=== PATIENT | female | born 2005 | race Caucasian/White ===

== ENCOUNTER 2024-02-10 08:23 | Outpatient (AMB) | payer BC, SELFPAY ==
[2024-02-10 08:44] VITALS: BP 118/78; PULSE 104; TEMP 37; O2SAT 98; BMI 57.9
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
== END 2024-02-10 09:07 | disposition home or self-care (01) ==
PROVIDERS: PCP Pediatrics; Visit Provider Physician Assistant
DX: Z13.9 Encounter for screening, unspecified (principal); H66.002 Acute suppurative otitis media without spontaneous rupture of ear drum, left ear

== ENCOUNTER → 2024-02-10 08:23 | Outpatient (BNVA) | payer BC, SELFPAY | PROVIDERS: PCP Pediatrics; Visit Provider Registered Nurse | DX: H66.002 Acute suppurative otitis media without spontaneous rupture of ear drum, left ear (principal); J02.9 Acute pharyngitis, unspecified | CPT/HCPCS: 87880 ==

== ENCOUNTER 2024-03-30 10:10 | Outpatient (REF) | payer BC, SELFPAY ==
--- OUTSIDE RECORDS SUMMARY | 2024-03-30 15:40 | XMS_ITS | Encounter Summary ---
Author Organization [facility] Address [address] [place] [id number] Phone Care Team Providers Care Malted Milk Supervisor Name Role Phone Modesta Nielsen DO Primary Care Provider [phone] Encounter Details Date Type Department Care Team (Late st Contact Info) Description 10/21/2016 Conversion Encounter [facility] [address] [place] [address] Social History Tobacco Use Types Packs/Day Years Used Date Smoking Tobacco: Never Assessed Comments Unknown Sex and Gender Information Value Date Recorded Sex Assigned at Not on file Legal Sex Female 5:23 PM EDT Gender Identity Transgender Male 10/12/2018 10:2 2 AM EDT Sexual Orientation Not on file documented as of this encounter Plan of Treatment Not on file documented as of this encounter Visit Diagnoses Not on filedocumented in this encounter Care Teams Malted Milk Supervisor Relationship Specialty Start Date End Date Modesta Nielsen DO [address] [place] [address] PCP - General 10/15/16 02/21/24 documented as of this encounter
--- OUTSIDE RECORDS SUMMARY | 2024-03-30 15:40 | XMS_ITS | Clinical Summary ---
Author Organization [facility] Address [address] [place] [id number] Phone Care Team Providers Care Cross Cut Sawyer Name Role Phone Unavailable Primary Care Provider Unavailabl e Allergies No known active allergies Medications testosterone cypionate 200 MG/ML injection INJECT 0.3 ML INTO THE MUSCLE Q 14 DAYS 5 9 Active B-D BLUNT FILL NEEDLE 18G X 1-1/2 misc USE TO DRAW UP MEDICATION ONCE Q 14 DAYS 11 9 Active BD DISP NEEDLE 23G X 1 misc USE TO ADMINISTER MEDICATION ONCE Q 2 WEEKS 11 9 Active B-D SYRINGE LUER-JACOB 1CC 1 ML misc USE TO DRAW UP AND ADMINISTER MEDICATION D FOR 14 DAYS 10 9 Active Active Problems Problem Noted Date Diagnosed Date Elevated blood pressure reading 06/25/2021 Overview (06/25/2021): Pt with acute pain today, but recent BP's all markedly elevated with elevated BMI and mood disorder co-morbidity. Overdue for [facility], will book Social problem 09/27/2019 Overview (07/28/2020): [facility]- D/w teen and dad that this is an unusual age to be making diagnoses of ADD and/or ASD There are other conditions that can be quite similar to the above He has worked with the same therapist for two years now and has talked to therapist about these concerns after he did online research on ADD and ASD I will refer him for psychol eval inc testing for ASD but also need input from therapist for referral Teen will need to d/w therapist signing a release so therapist can either write to me or call me Assessment & Plan (12/19/2019 10:56 AM EDT): On waitlist @ [facility] for ASD eval- knows the wait is long- 8 months Assessment & Plan (09/27/2019 9:43 AM EDT): D/w teen and dad that this is an unusual age to be making diagnoses of ADD and/or ASD There are other conditions that can be quite similar to the above He has worked with the same therapist for two years now and has talked to therapist about these concerns after he did online research on ADD and ASD I will refer him for psychol eval inc testing for ASD but also need input from therapist for referral Teen will need to d/w therapist signing a release so therapist can either write to me or call me [id number] transgender person 03/13/2018 Overview (10/12/2018): [facility]; started TEST shots [facility] therapist- Elysia Saw [facility] therapist Silvino Santizo in spring 2018- ?F/U Assessment & Plan (12/20/2019 9:23 AM EDT): Screen lipids and f glu TEST inj going well Family supportive Assessment & Plan (09/27/2019 9:37 AM EDT): Here with Dad today- nice to see them together and he seems very supportive Assessment & Plan (10/12/2018 10:18 AM EDT): We had a nice visit today- preferred pronoun is He/him; family is supportive though dad was slow to adjust at first; has good friends for support- one is also TG. Active in therapy and bonded with therapist @ [facility] Had lipid check 8mo ago prior to starting TEST inj; will screen again today Mood disorder 11/18/2014 Overview (10/12/2018): Mixed anxiety/depression; sees [facility] therapist- Elysia Ramírez; Assessment & Plan (12/20/2019 9:22 AM EDT): Engaged in therapy and doing much better overall Assessment & Plan (10/12/2018 10:24 AM EDT): BH screen scores improved from last year- bonded and active in therapy- [facility] BMI (body mass index), pedia tric, greater than or equal to 95% for age 0911/07/2009 Overview (12/20/2019): elev lipids 2019 rescreened 2019- consider RF to lipid clinic per TG clinic Assessment & Plan (10/12/2018 10:25 AM EDT): Lipid panel ordered Resolved Problems Problem Noted Date Diagnosed Date Resolved Date Other insomnia 08/03/2017 10/12/2018 Overview (08/03/2017): Difficulty getting to sleep and maintaining sleep. Not taking in melatonin. Depression 12/05/2014 10/12/2018 Overview (03/27/2018): Also concerned about weight gain. Patient alludes to social dysfunction at home. Assessment & Plan (08/03/2017 3:33 PM EDT): Discussed self harming ideation with father. He has been aware of this. Patient has therapist at school and is working on getting a partial hospitalization. She has no immediate plan of suicide. Follow up with PCP to discuss further treatment options. Immunizations Name Administration Dates Next Due DTaP 5 03/23/2007, 5,2003,06/18,2003 HPV Vaccine 9 Valent 06/02/2016,01/15/2015,11/18 Hep A, ped/adol 06/02/2016,01/15/2015 Hep B, ped/adol 2003,2003,2003 Hib (PRP-T) 05/15/2004, 4,2003,04/19 IPV 03/23/2007, 4,2003,04/19 Influenza Split 02/23/2012 Influenza, injectable, quadr ivalent, preservative free 01/20/2021,12/19/2019,11/18/2014 Influenza, injectable, trivalent 01/10/2008,12/08/2006 Influenza, intranasal, quadrivalent 12/15/2012 Influenza, intranasal, trivalent 11/07/2009 MMR 05/15/2004 MMRV 03/23/2007 Meningococcal Conj (Menactra) MCV4P 09/26/2019,0 11/18/2014 Pneumococcal Conjugate 02/17/2004,2003, Tdap 11/18/2014 Varicella 02/17/2004 Family History Medical History Relation Name Comments No Known Problems Brother Vinay Diabetes Father Kingsley Heart attack Father Kingsley Hypertension Father Kingsley Cancer (Childhood Onset) Father's Sister Breast cancer Maternal Grandmother No Known Problems Mother Deisy Diabetes Paternal Grandmother Heart disease (Premature) Paternal Grandmother No Known Problems Sister Chiquita Relation Name Status Comments Brother Vinay Alive Father Kingsley Alive Father: DM and HTN, Myocardial infarction age 42y Father's Sister Maternal Grandmother Mother Deisy Alive Mother: Alive a nd well Other Family history of Diabetes mellitus, Family history of Elevated cholesterol, Family history of Obesity Paternal Grandmother Sister Chiquita Alive Social History Tobacco Use Types Packs/Day Years Used Date Smoking Tobacco: Never Smokeless Tobacco: Never Tobacco Cessation:Counseling Given: Yes Alcohol Use Standard Drinks/Week Comments No 0 (1 standard drink = 0.6 oz pur e alcohol) Hunger/Food Answer Date Recorded In the last 12 months, did y ou or your family ever eat less than you felt you should because there wasn't enough money for food? No 12/19/2019 Stable Housing Answer Date Recorded Are you worried that in the next 2 months you may not have stable housing? No 12/19/2019 Transportation Concerns Answer Date Rec orded In the last 12 months, have you or your family ever had to go without healthcare because you didn't have a way to get there? No 12/19/2019 Hazards in Home Answer Date Recorded Think about the place you li ve. Do you have problems with any of the following? Pests (mice or roaches), mold, no/not working smoke detectors, water leaks, no window guards. No 2019 Financing Utilities Answer Date Recorde d In the last 12 months, has t he electric, gas, oil, or water company threatened to shut off your services in your home? No 12/19/2019 Safety at Home Answer Date Recorded Are you or your family worried about feeling saf e in your home? No 12/19/2019 Outside Support Answer Date Recorded Do you feel that you need mo re support from other people or programs to help you care for yourself or your family? No 12/19/2019 Understanding Health Concerns Answer Da te Recorded Do you need help understandi ng your or your child's healthcare needs (diagnosis, medications, plan, etc.)? No 12/19/2019 Financing Health Concerns Answer Date R ecorded In the last 12 months, was t here a time when your child needed to see a doctor or get medications or supplies but could not because of cost? No 12/19/2019 Missing School or Work Answer Date Christo rded Did you or your child miss s chool or work because of a health problem that could have been avoided? No 12/19/2019 Comments No Sex and Gender Information Value Date Recorded Sex Assigned at Not on file Legal Sex Female 5:23 PM EDT Gender Identity Transgender Male 10/12/2018 10:2 2 AM EDT Sexual Orientation Not on file Last Filed Vital Signs Vital Sign Reading Time Taken Comments Blood Pressure 152/94 06/17/2021 4:40 PM EDT Pulse 96 06/17/2021 4:40 PM EDT Temperature 36.9 ??C (98.4 ??F) 06/17/2021 4:40 PM ED T Respiratory Rate 24 04/14/2018 1:32 PM EST Oxygen Saturation 97% 06/17/2021 4:40 PM EDT Inhaled Oxygen Concentration - - Weight 160 kg (352 lb 3.2 oz) 06/17/2021 4:40 PM EDT Height 170.2 cm (5' 7 ) 01/20/2021 2:47 PM EST Body Mass Index - - Plan of Treatment Health Maintenance Due Date Last Done Comments Men B Vaccine (1 of 2 - Standard) 2019 Influenza Vaccines (#1) 2023 01/21/20 21, 12/19/2019, 11/18/2014, Additional history exists COVID-19 Vaccine (4 - 2023-2 5 season) 2023 03/13/2021, 07/17/2020, 06/26/2020 DTaP,Tdap,and Td Vaccines (7 - Td or Tdap) 11/18/2024 11/18/2014, 03/23/2007, 05/15/2004, Additional history exists Hepatitis B Vaccines Completed 2003, 2003, 2003 Pneumococcal Vaccine Completed 02/17/2004, 2003, 2003 HIB Vaccines Completed 05/15/2004, 08/05, 2003, Additional history exists IPV Vaccines Completed 03/23/2007, 11/06, 2003, Additional history exists MMR Vaccines Completed 03/23/2007, 05/15/2004 Varicella Vaccines Completed 03/23/2007, 02/17/2004 HPV Vaccines Completed 06/02/2016, 01/05, 11/18/2014 Hepatitis A Vaccines Completed 06/02/2016, 01/16/20 15 Meningococcal Vaccine Completed 09/26/2019, 015 Insurance PPO
[2024-03-30 16:21] LABS: Influenza A PCR NEGATIVE (Negative); Influenza B PCR NEGATIVE (Negative); Resp Syncy Virus RNA Qual PCR NEGATIVE (Negative); SARS COV2 PCR INHOUSE NEGATIVE (Negative)
== END 2024-03-30 10:11 | disposition home or self-care (01) ==
LOC: HO.LNP 10:10
PROVIDERS: PCP Pediatrics; Visit Provider Physician Assistant
DX: B34.9 Viral infection, unspecified (principal)
CPT/HCPCS: 0241U

== ENCOUNTER 2024-03-30 10:10 | Outpatient (AMB) | payer BC, SELFPAY ==
--- NOTE | 2024-03-30 10:44 | AM.OFFWIN_ITS ---
Intake Vital Signs 03/30/24 10:46 Height 5 ft 7 in Weight 167.829 kg BMI 57.9 BP 130/90 H Blood Pressure Location Rt brachial Position Sitting Pulse 102 H Pulse Source Pulse Oximeter Temp 98.5 F Temp Source Oral Pulse Oximetry (%) 99 Oxygen Delivery Method Room Air Intake Visit Reasons: EP barking cough/work note Intake Note: Patient here for cough, difficulty breathing that has been present for about 5 days. Patient Tobacco Use Status: Never used Tobacco Allergies No Known Allergies Allergy (Unverified 03/30/24 10:47) Do you need a note to return to daycare/school/sports/work: Yes HPI HPI Comments History of Present Illness Details 19 yo f presents w/ uri sx X 5 days, cou gh, fatigue, malaise, myalgias all came on five days ago and seem to be worsening instead of improving. Subjetive fevers and chills. No cp, sob, nausea, vomiting, diarrhea reported. No sick contacts. Requesting work note PE mild expiratory wheezing b/l Hx and pe concerning for viral illness vs bronchitis. Less likely PE, ACS, dissection, ards Plan- viral testing. Prednsione, albuterol Advised to reutrn w/ new or worsening sx. [facility] Social History Patient Tobacco Use Status: Never used Tobacco Review of Systems Const All systems reviewed & are unremarkable except as noted in HPI and below Physical Exam Vital Signs: Last Vital Signs Temp 98.5 F 03/30/24 10:46 Pulse 102 H 03/30/24 10:46 BP 130/90 H 03/30/24 10:46 Pulse Ox 99 03/30/24 10:46 Oxygen Delivery Method Room Air 03/30/24 10:46 BMI result Body Mass Index 57.9 vss Appearance: Alert.? Oriented X3.? No acute distress.? Head: Normocephalic, atraumatic, no step-offs or deformities Eyes: Pupils equal, round and reactive to light.? Neck: Normal inspection.? Neck supple.? CVS: Normal heart rate and rhythm.? Pulses normal.? Respiratory: No respiratory distress.? Breath sounds mild expiratory wheezing .? Abdomen: Soft and nontender.? Skin: Skin warm and dry.? Normal skin color.? Normal skin turgor.? Extremities: No lower extremity edema.? No calf ttp. 5/5 strength to bilateral upper and lower extremities Neuro: Oriented X 3.? No motor deficit.? No sensory deficit. CN 2-12 intact Assessment & Plan Assessment & Plan (1) Viral illness: Code(s): B34.9 - Viral infection, unspecified Plan Take your medications as prescribed. If you were prescribed antibiotics today, it is important that you take your medication to their entirety, do not skip any doses, do not finish them early. Follow-up with your primary care provider this week. Return to the emergency department with new or worsening symptoms. In case of emergency call 911 Orders: Orders SARS-CoV2/FLU/RSV Today B34.9 - Viral infection, unspecified Medications: New prednisone 40 mg (2 x 20 mg) PO DAILY 5 days 10 tabs 0RF albuterol sulfate 90 mcg/actuation 2 puffs inhalation Q6H PRN 6.7 grams 0RF shortness of breath or wheezing Coding Level of Care Code Est Pt Level 3 (39234) Diagnoses Viral illness B34.9
[2024-03-30 10:46] VITALS: BP 130/90; PULSE 102; TEMP 36.9; O2SAT 99; BMI 57.9
== END 2024-03-30 11:36 | disposition home or self-care (01) ==
PROVIDERS: PCP Pediatrics; Visit Provider Physician Assistant
DX: B34.9 Viral infection, unspecified (principal)

== ENCOUNTER 2024-11-27 18:29 | Emergency (ER) | payer BC, SELFPAY ==
[2024-11-27 18:33] VITALS: BP 180/93; PULSE 100; RESP 18; TEMP 36.6; O2SAT 98; BMI 58.3
--- NOTE | 2024-11-27 18:33 | ED_ITS ---
HPI - General Adult General Chief complaint: General Medical Stated complaint: right side swollen neck gland Time Seen by Provider: 11/27/24 22:44 Source: patient Mode of arrival: ambulatory Limitations: no limitations History of Present Illness ED Provider: Remigio MCCARTHY HPI narrative: The patient is a 19-year-old biological female who identifies as male, presenting to the ED for evaluation of right jaw pain which began earlier today while eating. Patient reports approximately 1 hour prior to arrival in the ED he was eating a hamburger when he developed swelling of the right submandibular space, patient reports the area became rock solid and painful, with tenderness to palpation. The patient denies dental pain, however attempted to brush his teeth and had no change in symptoms. The patient did not take any medication, patient's mother brought him to the ED for evaluation. Patient reports since arriving in the ED symptoms have improved dramatically, swelling has completely resolved, however does report some persistent mild tenderness with palpation, denies any pain at rest during exam. The patient denies associated fever/chills, nausea, vomiting, or other acute somatic complaint. Related Data Previous Rx's ?Medication ?Instructions ?Recorded albuterol sulfate 90 mcg/actuation 2 puff inhalation Q 6H PRN 03/30/24 aerosol inhaler shortness of breath or wheez ing #6.7 grams prednisone 20 mg tablet 40 mg (2 x 20 mg) PO DAILY 5 days 03/30/24 #10 tabs Allergies Allergy/AdvReac Type Severity Reaction Status Date / Time No Known Allergies Allergy Verified 11/27/24 18:36 Review of Systems 2 Review of Systems: Yes all other systems are reviewed and are negative PMFSH Social History Social History Patient Tobacco Use Status: Never used Tobacco Smoked in Last 30 Days: No Use of substances other than those prescribed or required for medical reasons: Yes Substance Use Type: Marijuana Substance Use Frequency: Occasionally Substance Use Frequency Other:: few times a year Advance Directives: No Advance Directives Information Provided: No Do you have a plan to hurt others: No Plan Physical Exam ED Vital Signs: Vital Signs - 24 hr 11/27/24 18:33 Temperature 98 F Pulse Rate 100 Respiratory Rate 18 Blood Pressure 180/93 H Pulse Oximetry 98 Oxygen Delivery Method Room Air BMI result Body Mass Index 58.3 CONSTITUTIONAL: The patient appears non-toxic, well nourished and in no acute distress. Vital signs as documented. HEAD: Atraumatic, normocephalic. EYES: EOMs grossly intact, pupils equal, conjunctiva clear, no exudate. ENT: Nares patent, no discharge. Airway patent, no audible stridor, visible mucosa is pink and moist without noted lesions. Posterior pharynx demonstrates midline nonedematous uvula, no peritonsillar swelling or tonsillar exudate. No trismus. NECK: trachea is midline, mild tenderness of the right submandibular space, no palpable masses or gross abnormalities. Full nonpainful range of motion. CHEST: Symmetric movement, normal appearance. LUNGS: Non-labored work of breathing. CARDIAC: No evidence of hypoperfusion. ABDOMEN: Nondistended, no obvious injury. : Deferred. EXTREMITIES: Moves all extremities spontaneously without reported pain. No obvious injury or deformity noted. NEURO: Alert and oriented x3, CN II-XII appear grossly intact. Cerebellar Functioning grossly intact. Speech clear and appropriate. SKIN: Warm, dry, color appropriate. No rashes or lesions noted. Course Course Course Narrative: This is a Rapid Medical Examination (RME) performed by Tay Rangel PA-C in triage. Full HPI, ROS, assessment and treatment plan per primary provider in the Main ED. Hx: 19 yo F here w/ swelling to lower jaw which began while eating a hamburger approx 1 hour ago. recent upper respiratory sx. Plan: viral swabs Medical Decision Making Medical Decision Making MDM Narrative: 10:55 PM 11/27/2024 (Tay MCCARTHY): The patient is a 19-year-old biological female who identifies as male, presenting to the ED for evaluation of right jaw pain which began earlier today while eating. Patient reports approximately 1 hour prior to arrival in the ED he was eating a hamburger when he developed swelling of the right submandibular space, patient reports the area became rock solid and painful, with tenderness to palpation. The patient denies dental pain, however attempted to brush his teeth and had no change in symptoms. The patient did not take any medication, patient's mother brought him to the ED for evaluation. Patient reports since arriving in the ED symptoms have improved dramatically, swelling has completely resolved, however does report some persistent mild tenderness with palpation, denies any pain at rest during exam. The patient denies associated fever/chills, nausea, vomiting, or other acute somatic complaint. In the ED patient's exam reveals no submandibular swelling, trismus, posterior pharyngeal abnormalities, or evidence of [employer]. The patient likely suffered from sialolithiasis which has spontaneously resolved. Patient will be discharged with supportive care. Admission/Observation Consideration of admission/observation: Escalation of care including admission/observation considered Lab Data MDM Lab Attestation statement: I reviewed the patient's lab results. 11/27/24 19:58 11/27/24 19:58 Labs: Lab Results 11/27/24 Range/Units 19:58 WBC 13.0 H (4.8-10.8) X10*3/uL RBC 5.01 (4.20-5.50) X10*6/uL Hgb 13.8 (12.0-16.0) g/dl Hct 41.1 (37.0-47.0) % MCV 82.0 (80.0-98.0) fL MCH 27.5 (27.0-33.0) pg MCHC 33.6 (31.0-35.0) g/dl RDW 14.7 (11.0-16.0) % Plt Count 330 (160-400) X10*3/uL MPV 9.4 (9.4-12.3) fL Immature Gran % (Auto) 0.2 (0.0-0.4) % Neut % (Auto) 61.1 (45-73) % Lymph % (Auto) 31.0 (20-40) % [place] % (Auto) 6.2 (2-11) % Eos % (Auto) 1.2 (0-4) % Baso % (Auto) 0.3 (0-2) % Lymph # (Auto) 4.0 (1.2-4.9) X10*3/uL [place] # (Auto) 0.8 (0.1-1.2) X10*3/uL Eos # (Auto) 0.2 (0.0-0.4) X10*3/uL Baso # (Auto) 0.0 (0.0-0.2) X10*3/uL Abs Immat Gran (auto) 0.03 (0.00-0.03) X10*3/uL Absolute Neuts (auto) 7.9 (2.0-8.3) x10*3/uL Absolute Nucleated RBC 0.000 (0.0-0.012) X10*3/uL Nucleated RBC % (auto) 0.0 (0.0-0.2) /100WBC Sodium 142 (135-145) mmol/L Potassium 4.3 (3.3-5.1) mmol/L Chloride 108 (96-108) mmol/L Carbon Dioxide 25 (22-29) mmol/L Anion Gap 13 (12-20) BUN 11 (9-16) mg/dL Creatinine 0.70 (0.5-1.4) mg/dL Estim Creat Clear Calc 209.8 Estimated GFR > 60 Random Glucose 139 H (60-115) mg/dL Calcium 9.4 (8.4-10.2) mg/dL Total Bilirubin 0.2 (0.0-1.0) mg/dL AST 25 (5-31) U/L ALT 27 (0-31) U/L Alkaline Phosphatase 83 (39-117) U/L Total Protein 7.0 (6.5-8.0) g/dL Albumin 4.2 (3.5-5.0) g/dL COVID-19 (EMILY) Negative (Negative) COVID-19 Clin Com See Note Influenza Type A (PINA) Negative (Negative) Influenza Type B (PINA) Negative (Negative) Influenza A & B Note See Note Discharge Plan Discharge Clinical Impression: Submandibular sialolithiasis Patient Disposition: Home, Self-Care Instructions: Sialoadenitis (ED) Additional Instructions: Thank you for choosing [facility] Emergency Department for your care today. Thankfully your laboratory evaluation today is reassuring, and your viral swabs are negative. At this time there is no indication for admission to the hospital or continued ED observation, and it is safe to discharge you home. Your symptoms are consistent with a salivary stone blocking your submandibular salivary gland, a condition known as sialolithiasis. Thankfully your symptoms have begun to improve indicating the stone has likely already passed. At this time there was no indication for antibiotics or other intervention. You may take alternating (staggered) doses of ibuprofen 600mg and Tylenol 1000mg every 4 hours as needed for any additional pain. Please stay well hydrated and get plenty of rest. You can also apply ice to the area for 20 minutes every hour. Please follow up with your primary care physician for re-evaluation, additional management of your symptoms, and continued preventative care. If you do not have a primary care physician, please call the [facility] at [phone] to establish a new primary care physician. While waiting to establish your new primary care physician, you can call our [facility] at [phone] for non-emergency needs. Please return to the emergency department if you develop a severe or sudden change in your symptoms, a fever over 100.4 that does not improve with Tylenol or Ibuprofen, recurrent vomiting, or any other new or worsening symptoms or concerns. Prescriptions: No Action prednisone 20 mg tablet 40 mg PO DAILY 5 Days Qty: 10 0RF albuterol sulfate 90 mcg/actuation HFA aerosol inhaler 2 puff inhalation Q6H PRN (Reason: shortness of breath or wheezing) Qty: 6.7 0RF Print Language: Indonesian
[2024-11-27 20:03] LABS: MANUAL DIFF FLAG NO
[2024-11-27 20:10] LABS: Hematocrit 41.1 % (37.0-47.0); Hemoglobin 13.8 g/dl (12.0-16.0); Imm Gran Abs Auto 0.03 X10*3/uL (0.00-0.03); Imm Gran Pct Auto 0.2 % (0.0-0.4); Lymphocytes Absolute Auto 4.0 X10*3/uL (1.2-4.9); Mean Corpuscular HGB Conc 33.6 g/dl (31.0-35.0); Mean Corpuscular Hemoglobin 27.5 pg (27.0-33.0); Mean Corpuscular Volume 82.0 fL (80.0-98.0); NRBC Abs Auto 0.000 X10*3/uL (0.0-0.012); NRBC Pct Auto 0.0 /100WBC (0.0-0.2); Platelet Count 330 X10*3/uL (160-400); Red Blood Count 5.01 X10*6/uL (4.20-5.50); White Blood Count 13.0 X10*3/uL (4.8-10.8)
[2024-11-27 20:22] LABS: IDNOW Serial# 58CA691E; Influenza B2 Negative (Negative)
[2024-11-27 20:23] LABS: Alanine Aminotransferase 27 U/L (0-31); Albumin Level 4.2 g/dL (3.5-5.0); Alkaline Phosphatase 83 U/L (39-117); Anion Gap 13 (12-20); Aspartate Amino Transferase 25 U/L (5-31); Blood Urea Nitrogen 11 mg/dL (9-16); COVID-19 Test Negative (Negative); Calcium 9.4 mg/dL (8.4-10.2); Carbon Dioxide 25 mmol/L (22-29); Chloride 108 mmol/L (96-108); Creatinine Clr Calc Pharmacy 209.8; Estimated Glomerular Filt Rate > 60; IDNOW Serial# 55D5AD1C; Potassium 4.3 mmol/L (3.3-5.1); Sodium 142 mmol/L (135-145); Total Protein 7.0 g/dL (6.5-8.0)
--- OUTSIDE RECORDS SUMMARY | 2024-11-27 22:02 | XMS_ITS | Clinical Summary ---
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 Overdue for [facility], will book Social problem 09/27/2019 Overview (07/28/2020): [...] either write to me or call me [id number] transgender person 03/13/2018 Overview (10/12/2018): Seeing [facility] 2018; started TEST shots [facility] therapist- Elysia Saw [facility] therapist [...] in therapy and bonded with therapist @ [facility] Had lipid check 8mo ago prior to starting TEST inj; will screen again today Mood disorder 11/18/2014 Overview (10/12/2018): Mixed anxiety/depression; sees [facility] therapist- Elysia Ramírez; Assessment & Plan [...] PCP to discuss further treatment options. Immunizations Immunization Administration Dates Next Due DTaP 5 03/23/2007, [...] 96 06/17/2021 4:40 PM EDT Temperature 36.9 C (98.4 F) 06/17/2021 4:40 PM EDT Respiratory Rate 24 04/14/2018 1:32 PM EST [...] 2 - Standard) 2019 Influenza Vaccines (#1) 2024 01/21/20 21, 12/19/2019, 11/18/2014, Additional history exists COVID-19 Vaccine (4 - 2025-2 6 season) 2024 03/13/2021, 07/17/2020, 06/26/2020 DTaP,Tdap,and Td Vaccines (7 [...] 15 Meningococcal Vaccine Completed 09/26/2019, [address] [place] [address] PPO
--- OUTSIDE RECORDS SUMMARY | 2024-11-27 22:02 | XMS_ITS | Encounter Summary ---
Author Organization [facility] Address [address] [place] [phone] Phone Care Team Providers Care Tax Clerk Name Role Phone Modesta Nielsen DO Primary Care Provider [phone] Encounter Details Date Type Department Care Team (Late st Contact Info) Description 10/21/2016 Conversion Encounter [facility] [address] [place] [address] Social History Tobacco Use Types Packs/Day Years [...] on filedocumented in this encounter Care Teams Tax Clerk Relationship Specialty Start Date End Date Modesta Nielsen DO [address] [place] [address] PCP - General 10/15/16 02/21/24 documented as of this encounter
[2024-11-27 23:07] VITALS: BP 180/93; PULSE 100; RESP 18; TEMP 36.6; O2SAT 98
== END 2024-11-27 23:08 | disposition home or self-care (01) ==
PROVIDERS: Physician Assistant Medical; Emergency Provider Emergency Medicine
DX: K11.5 Sialolithiasis (principal); Z11.52 Encounter for screening for COVID-19; Z79.899 Other long term (current) drug therapy
CPT/HCPCS: 36415; 80053; 85025; 87502; 87635; 99283; 99284